=== PATIENT | female | born 1970 | race Caucasian/White ===

== ENCOUNTER 2020-11-05 09:18 | Emergency (ER) | payer OTHER, SELFPAY ==
--- NOTE | ~2020-11-05 | XR_ITS ---
EXAMINATION:XR_[id number]_CR, XR thoracic spine 3V DATE: 11/05/2020 10:19 INDICATION: Posterior neck and back pain 2 weeks post fall TECHNIQUE: 1. AP, lateral and odontoid views of the cervical spine are provided. 2. AP, lateral and lateral swimmer's views of the thoracic spine were obtained. COMPARISON: None FINDINGS: Cervical spine: 1-2 mm anterolisthesis C5 on C6. 3 to 4 mm anterolisthesis C7 on T1. Odontoid is intact. Normal atla ntoaxial interval. Vertebral body heights are normal. Mild disc height loss at C6-C7 and C7-T1. Multi level mild uncovertebral osteoarthritis in the lower thoracic spine. Moderate bilateral facet osteoar thritis most prominent on the right at C3-C4 and on the left at C4-C5, C5-C6 and bilaterally at C7-T1 . Prevertebral soft tissues are normal. Thoracic spine: 10 degree lower thoracic levocurvature. Sagittal alignment is normal. Multilevel mild disc height los s with small endplate osteophytes throughout the thoracic spine. Calcified nodule in the left lower l obe consistent with old granulomatous disease. Visualized portions of the lungs are otherwise clear w ith no pneumothorax or pleural effusion. Cardiomediastinal silhouette is normal. IMPRESSION: 1. Mild to moderate cervical spondylosis with 102 mm anterolisthesis C5 on C6 and 3 to 4 mm anterolis thesis C7 on T1. 2. Mild thoracic spondylosis with mild lower thoracic levocurvature. Reviewed, dictated and finalized at location A. IMPRESSION: 1. Mild to moderate cervical spondylosis with 102 mm anterolisthesis C5 on C6 a nd 3 to 4 mm anterolisthesis C7 on T1. 2. Mild thoracic spondylosis with mild lower thoracic levocurvature.
[2020-11-05 09:40] VITALS: BP 131/82; PULSE 82; RESP 18; TEMP 36.6; O2SAT 100
--- NOTE | 2020-11-05 10:00 | ED.NECK ---
HPI - Neck Pain/Injury General Chief Complaint: Neck Pain/Injury Stated Complaint: FALL 2 WEEKS AGO, NECK PAIN Time Seen by Provider: 11/05/20 09:45 History of Present Illness HPI Narrative: Fall 2 weeks ago while shoveling dirt. Mild neck pain following the injury. It has since spread throughout the entire neck and shoulders. No weakness, numbness, fever. Related Data Allergies Allergy/AdvReac Type Severity Reaction Status Date / Time Sulfa (Sulfonamide Allergy Swelling Verified 11/05/20 09:43 Antibiotics) Review of Systems Review of Systems: All systems reviewed & are unremarkable except as noted in HPI and below Constitutional: Constitutional: Denies chills, Denies fever(s) and Denies weakness Eyes: Eyes: Reports no additional eye complaints Cardiovascular: Cardiovascular: Denies chest pain Respiratory: Respiratory: Denies dyspnea Musculoskeletal: Musculoskeletal: Reports back pain Neurologic: Denies confusion, Denies dizziness, Denies numbness and Denies weakness Exam Const: General: healthy appearing, no acute distress and alert Orientation/consciousness: patient oriented x3 HENMT: Head: normal to inspection Neck: Neck: normal visual inspection Chest: Chest palpation & inspection: no tenderness Resp: Effort & Inspection: normal respiratory effort Auscultation: clear to auscultation bilaterally Cardio: Rate: regular rate Rhythm: regular rhythm Back/Spine/Pelvis: Other: Diffuse increased muscle tone in cervical and upper thoracic musculature Skin: General skin exam: normal color Neuro: General: patient oriented x3, moves all extremities and CN's II-XI intact bilaterally Gait exam (Neuro): Normal gait present Other: 5/5 strength throughout Extrem: General: normal to inspection Course Vital Signs Vital signs: Vital Signs Temperature 36.6 C 11/05/20 09:40 Pulse Rate 82 11/05/20 09:40 Respiratory Rate 18 11/05/20 09:40 Blood Pressure 131/82 11/05/20 09:40 Pulse Oximetry 100 11/05/20 09:40 Temperature 36.6 C 11/05/20 09:40 Pulse Rate 82 11/05/20 09:40 Respiratory Rate 18 11/05/20 09:40 Blood Pressure 131/82 11/05/20 09:40 Pulse Oximetry 100 11/05/20 09:40 MDM - Neck Pain/Injury Differential Diagnosis Differential diagnosis: Likely strain of neck muscle Medical Records Attestation: I reviewed the patient's medical records. Lab Data Attestation: I reviewed the patient's lab results. Imaging Data Radiologist's impression: ITS Impressions Cervical Spine X-Ray 11/05/20 10:31 IMPRESSION: 1. Mild to moderate cervical spondylosis with 102 mm anterolisthesis C5 on C6 and 3 to 4 mm anterolisthesis C7 on T1. 2. Mild thoracic spondylosis with mild lower thoracic levocurvature. Thoracic Spine X-Ray 11/05/20 10:31 IMPRESSION: 1. Mild to moderate cervical spondylosis with 102 mm anterolisthesis C5 on C6 and 3 to 4 mm anterolisthesis C7 on T1. 2. Mild thoracic spondylosis with mild lower thoracic levocurvature. Discharge Plan Discharge Clinical Impression: Strain of neck muscle Qualifiers: Encounter type: initial encounter Qualified Code(s): S16.1XXA - Strain of muscle, fascia and tendon at neck level, initial encounter Patient Disposition: Home, Self-Care Condition: Stable Instructions: Cervical Strain (ED) Prescriptions: New cyclobenzaprine 10 mg tablet 10 mg PO TID PRN (Reason: muscle spasm) Qty: 20 RF: 0 Follow-up/Referrals: PHYSICIAN,MECHANICAL FIELD ENGINEER [Primary Care Provider] -
== END 2020-11-05 11:09 | disposition home or self-care (01) ==
PROVIDERS: Emergency Provider Emergency Medicine
DX: S16.1XXA Strain of muscle, fascia and tendon at neck level, initial encounter (principal); M47.812 Spondylosis without myelopathy or radiculopathy, cervical region; M47.814 Spondylosis without myelopathy or radiculopathy, thoracic region; W18.30XA Fall on same level, unspecified, initial encounter
CPT/HCPCS: 72040; 72072; 99283

== ENCOUNTER → 2021-08-27 16:11 | Outpatient (CLI) | payer OTHER, SELFPAY ==
--- NOTE | ~2021-08-27 | XR_ITS ---
XR knee RT 3V 08/27/2021 16:24 Indication: Right knee pain Procedure: 3 views right knee Comparison: No prior studies for comparison. Findings: There is mild osteoarthritis of the right knee. No fracture, subluxation or dislocation. Th ere is a small ossific density anterior to the knee, likely related to remote trauma or degenerative joint disease. Impression: 1: No significant bone or joint abnormality. Reviewed, dictated and finalized at location A. ENTER INSPECTOR Impression: 1: No significant bone or joint abnormality.
== END ==
PROVIDERS: PCP Nurse Practitioner Family; Visit Provider Nurse Practitioner Family
DX: M25.561 Pain in right knee (principal)
CPT/HCPCS: 73562